=== PATIENT | male | born 1930 | race Caucasian/White ===

== ENCOUNTER 2017-02-27 14:40 | Emergency (ER) | payer MEDICARE ==
[~2017-02-27 14:40] MED LIST: ASPI81TA82 PO; CALA240T PO; CLOP75 PO; COZA100T PO; D32000TA PO; DONE5TAB14 PO; DULO20 PO; EQL400TA PO; ERYT.5%O RIGHT EYE; LEVO75TA3 PO; LUTE20CA PO; NAME10TA PO; PRAV20TA67 PO; TAB-TAB PO
[2017-02-27 15:07] VITALS: BP 158/66; PULSE 60; RESP 16; TEMP 97.6; O2SAT 95
[2017-02-27] MEDS ORDERED: LOSA100T PO (15:07)
[2017-02-27] MEDS ORDERED: MEMA1TAB2 PO (15:07)
[2017-02-27] MEDS ORDERED: LUTE20CA PO (15:07)
[2017-02-27] MEDS ORDERED: DONE5TAB7 PO (15:07)
[2017-02-27] MEDS ORDERED: QUET1TAB7 PO (15:07)
[2017-02-27] MEDS ORDERED: FOLI400T PO (15:07)
[2017-02-27] MEDS ORDERED: HYDR12.57 PO (15:07)
[2017-02-27] MEDS ORDERED: CYMB60CA PO (15:07)
[2017-02-27] MEDS ORDERED: D200CAP PO (15:07)
[2017-02-27] MEDS ORDERED: LEVO75TA3 PO (15:07)
--- NOTE | 2017-02-27 16:19 | RADRPT ---
EXAM DATE/TIME: 02/27/2017 15:42 [facility] COMPARISON: No previous studies available for comparison. INDICATIONS : Left hand pain after fall. MEDICAL HISTORY : None. SURGICAL HISTORY : Bilateral leg amputations. ENCOUNTER: Initial ACUITY: 1 day PAIN SCORE: 8/10 LOCATION: Left hand. FINDINGS: There is no acute fracture or dislocation of the left hand. Mild soft tissue swelling is noted involv ing the second and third digits. Joint space narrowing is noted involving the interphalangeal joints as well as the first and third metacarpophalangeal joints. Prominent osteophytosis is noted along the dorsal aspect of the first interphalangeal joint. CONCLUSION: 1. No acute fracture or dislocation. 2. Mild soft tissue swelling involving the second and third digits. 3. Arthritic joint space narrowing involving the interphalangeal joints and the first and third metac arpophalangeal joints as well as prominent osteophytosis involving the dorsal aspect of the first int erphalangeal joint. Shiva Santillan MD on February 27, 2017 at 16:14 Board Certified Radiologist. This report was verified electronically.
--- NOTE | 2017-02-27 16:34 | RADRPT ---
EXAM DATE/TIME: 02/27/2017 15:51 [facility] COMPARISON: No previous studies available for comparison. INDICATIONS : Trauma, fall. RADIATION DOSE: 66.60 CTDIvol (mGy) MEDICAL HISTORY : Hypertension. Dementia. Parkinsons. SURGICAL HISTORY : None. ENCOUNTER: Initial ACUITY: 1 day PAIN SCALE: Non-responsive LOCATION: cranial TECHNIQUE: Multiple contiguous axial images were obtained of the head. Using automated exposure control and adj ustment of the mA and/or kV according to patient size, radiation dose was kept as low as reasonably a chievable to obtain optimal diagnostic quality images. DICOM format image data is available electro nically for review and comparison. FINDINGS: There is evidence of ventriculomegaly suggesting central cerebral atrophy versus hydrocephalus. Clini [place] correlation is recommended. Moderate periventricular and subcortical white matter small vessel is chemic changes are noted bilaterally. There is no acute hemorrhage, acute infarct, mass effect or ext ra axial fluid collections. There is opacification of the left maxillary sinus with wall thickening s uggesting chronic sinusitis. CONCLUSION: 1. No acute infarct, acute hemorrhage, mass effect or extra-axial fluid collections. 2. Ventriculomegaly suggesting central cerebral atrophy versus hydrocephalus. Clinical correlation is recommended. 3. Moderate periventricular and subcortical white matter small vessel ischemic changes bilaterally. 4. Opacification and wall thickening involving the left maxillary sinus suggesting chronic sinusitis. Shiva Santillan MD on February 27, 2017 at 16:29 Board Certified Radiologist. This report was verified electronically.
--- NOTE | 2017-02-27 16:59 | RADRPT ---
EXAM DATE/TIME: 02/27/2017 15:51 [facility] COMPARISON: No previous studies available for comparison. INDICATIONS : Trauma, fall. RADIATION DOSE: 26.51 CTDIvol (mGy) MEDICAL HISTORY : Hypertension. Dementia. Parkinsons. SURGICAL HISTORY : Carotid endarterectomy. ENCOUNTER: Initial ACUITY: 1 day PAIN SCALE: Non-responsive LOCATION: neck TECHNIQUE: Volumetric scanning of the cervical spine was performed. Multiplanar reconstructions in the sagittal, coronal and oblique axial planes were performed. Using automated exposure control and adjustment o f the mA and/or kV according to patient size, radiation dose was kept as low as reasonably achievable to obtain optimal diagnostic quality images. DICOM format image data is available electronically f or review and comparison. FINDINGS: Sagittal images demonstrate normal vertebral body alignment and curvature. The odontoid is intact. Th e occipital condyles and lateral masses of C1 are intact. Axial images were performed from C2-C3 to C7-T1. There is multilevel disc space narrowing and marginal osteophyte formation maximal at C6-C7. C2-C3: There is osteophytic ridging along the posterior aspect of vertebral body. The neural foramina are cl ear bilaterally. C3-C4: There is no significant spinal canal stenosis. There is moderate facet arthritis on the right. There is mild right sided neural foraminal narrowing. C4-C5: There is no evidence of disc protrusion or spinal canal stenosis. There is mild facet arthritis bilat erally. C5-C6: There is uncovertebral joint hypertrophy bilaterally. There is moderate neural foraminal narrowing bi laterally. There is mild spinal canal stenosis. C6-C7: There is osteophytic ridging along the posterior aspect of vertebral body. There is moderate facet ar thritis bilaterally with ligamentum flavum hypertrophy. There is rim calcification in the left forame n posterior to the nerve root which may reflect a calcified synovial cyst. No aggressive features are identified. C7-T1: No significant abnormalities identified. CONCLUSION: 1. There is no evidence of acute fracture. 2. Moderate degenerative changes as described above. 3. Multilevel neural foraminal narrowing as above maximal at C6-C7 on the left potentially calcified synovial cyst optimize in the nerve root exit zone. 4. There is mild spinal canal stenosis. Herve Lombardi MD on February 27, 2017 at 16:53 Board Certified Radiologist. This report was verified electronically.
--- NOTE | 2017-02-27 17:13 | PD ---
HPI Chief Complaint: Fall Time Seen by Provider: 15:29 Travel History International Travel<30 days: No Contact w/Intl Traveler<30days: No Traveled to known affect area: No History of Present Illness HPI 86-year-old male here for evaluation after he fell from his wheelchair. There was no loss of consciousness. The fall was witnessed. Patient is not anticoagulated. He has abrasions to his forehead and left hand. He denies any pain. Symptom severity is mild. No aggravating or alleviating factors. 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) Cardiac Catheterization: Yes Cardiovascular Problems: Yes (PAD) High Cholesterol: Yes Chemotherapy: No Chest Pain: No Congestive Heart Failure: No COPD: No Cerebrovascular Accident: Yes Coronary Artery Disease: Yes Dementia: Yes Diabetes: Yes Patient Takes Glucophage: No Diminished Hearing: No Endocrine: Yes Gastrointestinal Disorders: Yes (incontinent of stool) GERD: Yes Glaucoma: No Hepatitis: No Hiatal Hernia: No Hypertension: Yes Immune Disorder: No Implanted Vascular Access Dvce: No Kidney Stones: No Musculoskeletal: Yes (left leg ampuation) Neurologic: Yes (dementia) Parkinson's Disease: Yes Psychiatric: No Reproductive: No Respiratory: No Myocardial Infarction: No Radiation Therapy: No Renal Failure: No Sickle Cell Disease: No Sleep Apnea: No Thyroid Disease: Yes (hypothyroid) Triglycerides - High: Yes Ulcer: No ?: Not Past Surgical History Abdominal Surgery: No AICD: No Appendectomy: No Arteriovenous Shunt: No Cardiac Surgery: Yes (BILATERAL CAROTID ENDARTERECTOMY 2004) Cholecystectomy: No Coronary Stent: Yes Ear Surgery: No Endocrine Surgery: No Eye Surgery: No Genitourinary Surgery: No Gynecologic Surgery: No Insulin Pump: No Joint Replacement: No Neurologic Surgery: No Oral Surgery: No Pacemaker: No Thoracic Surgery: No Tonsillectomy: Yes Social History Alcohol Use: Yes (beer occ) Tobacco Use: No (FORMER) Substance Use: No Allergies-Medications (Allergen,Severity, Reaction): Coded Allergies: *MDRO Multi-Drug Resistant Organism (Verified Adverse Reaction, Severe, ) Reported Meds & Prescriptions Reported Meds & Active Scripts Active Reported D3 Super Strength (Cholecalciferol) 2,000 Unit Cap 2,000 Units PO DAILY Cymbalta DR (Duloxetine HCl) 60 Mg Capdr 60 Mg PO DAILY Donepezil 5 Mg Tab 5 Mg PO HS Folic Acid 0.4 Mg Tab 400 Mcg PO DAILY Review of Systems Except as stated in HPI: all other systems reviewed are Neg General / Constitutional: No: Fever Physical Exam Narrative GENERAL: Alert and well-appearing male. SKIN: Warm and dry. HEAD: Normocephalic. Abrasion to left forehead EYES: Pupils equal, round, reactive. No injection or drainage. NECK: Supple, trachea midline. No midline tenderness. CARDIOVASCULAR: Regular rate and rhythm without murmurs, gallops, or rubs. No chest wall tenderness RESPIRATORY: Breath sounds equal bilaterally. No accessory muscle use. GASTROINTESTINAL: Abdomen soft, non-tender, nondistended. MUSCULOSKELETAL: No cyanosis, or edema. Bilateral above-knee amputation. Left hand: Mild swelling and abrasion to the dorsal aspect of the left hand. Patient is able to fully flex and extend all fingers. Brisk cap refill. BACK: Nontender without obvious deformity. No CVA tenderness. Data Data Last Documented VS Vital Signs Date Time Temp Pulse Resp B/P (MAP) Pulse Ox O2 Delivery O2 Flow Rate FiO2 02/27/17 15:07 97.6 60 16 158/66 (96) [address] Brain W/O Iv Contrast(Rout) (02/27/17 ) Ct Cerv Spine W/O Contrast (02/27/17 ) Hand, Complete ([id number]) (02/27/17 ) [facility] Medical Decision Making Medical Screen Exam Complete: Yes Emergency Medical Condition: Yes Differential Diagnosis Skull fracture, ICH, cervical spine fracture, hand fracture, contusion Narrative Course 86-year-old male here for evaluation after he fell from his wheelchair. There was no loss of consciousness. The fall was witnessed. Patient is on antiplatelet. He has abrasions to his forehead and left hand. CT of the brain , cervical spine are negative. X-ray of the left hand negative for fracture. All findings discussed with patient and family. Return precautions were discussed. Patient is to follow-up for recheck with his primary doctor. Patient/family verbalizes understanding and agreed plan. Diagnosis Primary Impression: Head injury Qualified Codes: S09.90XA - Unspecified injury of head, initial encounter Additional Impressions: Abrasion Contusion Qualified Codes: S60.222A - Contusion of left hand, initial encounter Referrals: Primary Care Physician Additional Instructions: Tylenol as needed for pain. Apply antibiotic ointment to the abrasions. Follow-up with primary doctor Return for new or worsening symptoms Disposition: 01 DISCHARGE HOME Condition: Stable Tran Hernandez Feb 27, 2017 17:13
== END 2017-02-27 17:31 | disposition home or self-care (01) ==
LOC: PHEFT 14:40
DX: S09.90XA Unspecified injury of head, initial encounter (principal); S60.222A Contusion of left hand, initial encounter; S00.81XA Abrasion of other part of head, initial encounter; M50.323 Other cervical disc degeneration at C6-C7 level; D64.9 Anemia, unspecified; E11.9 Type 2 diabetes mellitus without complications; I10 Essential (primary) hypertension; I25.10 Atherosclerotic heart disease of native coronary artery without angina pectoris; W05.0XXA Fall from non-moving wheelchair, initial encounter
CPT/HCPCS: 70450; 72125; 73130; 99284